=== PATIENT | male | born 1975 | race Caucasian/White ===

== ENCOUNTER → 2016-11-01 | Outpatient (CLI) | payer OTHER ==
--- NOTE | 2016-11-01 10:35 | XR ---
EXAMINATION TYPE: XR lumbar spine 2 or 3V DATE OF EXAM: 11/01/2016 9:44 AM COMPARISON: NONE HISTORY: 41 year-old male chronic back pain, no injury TECHNIQUE: 3 views FINDINGS: 5 lumbar type vertebral bodies. Mild endplate spondylosis thoracolumbar junction and upper lumbar spi ne. Mild disc interspace narrowing at L5-S1. Alignment is maintained and vertebral body heights are p reserved. IMPRESSION: 1. Some endplate spondylosis at the thoracolumbar junction and mild degenerative disc disease at L5-S 1. 2. No vertebral compression collapse or malalignment.
== END | disposition home or self-care (01) ==
LOC: RADXRMAIN 09:23
PROVIDERS: ATTEND Internal Medicine
DX: M51.37 Other intervertebral disc degeneration, lumbosacral region (principal); M47.815 Spondylosis without myelopathy or radiculopathy, thoracolumbar region
CPT/HCPCS: 72100

== ENCOUNTER → 2019-06-29 | Outpatient (CLI) | payer OTHER ==
--- NOTE | 2019-06-29 11:36 | XR ---
EXAMINATION TYPE: XR knee complete LT DATE OF EXAM: 06/29/2019 CLINICAL HISTORY: Sharp left knee pain. TECHNIQUE: Three views of the left knee are obtained. COMPARISON: None. FINDINGS: There is no acute fracture/dislocation evident in left knee. Well-defined bony fragmentati on lateral aspect of the patella could reflect unfused growth plates or product of old trauma. Mild t o moderate narrowing medial slightly more prominent than lateral tibiofemoral compartments. Mild spur ring medial tibial femoral compartment. Moderate to severe narrowing patellofemoral compartment with mild spurring. Increased density suprapatellar bursa suspicious for moderate joint effusion. IMPRESSION: As above. Findings somewhat prominent for patient's chronologic age.
--- NOTE | 2019-06-29 11:37 | XR ---
EXAMINATION TYPE: XR thoracic spine 2V DATE OF EXAM: 06/29/2019 CLINICAL HISTORY: Injury with mid back pain. TECHNIQUE: Frontal, lateral, and swimmer's view of thoracic spine are obtained. COMPARISON: None. FINDINGS: Thoracic spine show straightened alignment without evidence of acute fracture or dislocatio n. Slight scoliotic curvature on frontal images. Vertebral body heights and disc space heights are p reserved. Minimal multilevel spurring. Visualized ribs are unremarkable bilaterally. IMPRESSION: As above.
--- NOTE | 2019-06-29 11:40 | XR ---
EXAMINATION TYPE: XR lumbar spine 2 or 3V DATE OF EXAM: 06/29/2019 CLINICAL HISTORY: Low back pain after recent injury. TECHNIQUE: Frontal and lateral images of the lumbar spine are obtained. COMPARISON: Lumbar spine x-ray November 01, 2016 FINDINGS: There are 5 lumbar type vertebral bodies redemonstrated. There is worsening now severe pos terior disc space narrowing L5-S1 level with suggestion of slight grade 1 retrolisthesis L5 on S1. Re mainder of vertebral body and disc space heights are maintained. Facet arthropathy lower lumbar level s is suspected. Poor visualization of right L5 spinous process on current study noted. IMPRESSION: As above, consider further investigation with CT or MRI lumbar spine study.
== END | disposition home or self-care (01) ==
LOC: RADXRMAIN 10:27
PROVIDERS: ATTEND Family Medicine
DX: M99.73 Connective tissue and disc stenosis of intervertebral foramina of lumbar region (principal); M43.16 Spondylolisthesis, lumbar region; M46.96 Unspecified inflammatory spondylopathy, lumbar region; M54.6 Pain in thoracic spine; M41.84 Other forms of scoliosis, thoracic region; M25.562 Pain in left knee
CPT/HCPCS: 72070; 72100

== ENCOUNTER → 2019-07-13 | Outpatient (CLI) | payer OTHER ==
--- NOTE | 2019-07-13 14:23 | MR ---
EXAMINATION TYPE: MR lumbar spine wo con DATE OF EXAM: 07/13/2019 COMPARISON: Plain film 07/09/2019 HISTORY: Low back pain TECHNIQUE: Multiplanar, multisequence images of the lumbar spine were acquired. L1-L2: Mild posterior disc bulge causes slight anterior mass effect on the thecal sac. No significant central stenosis or foraminal encroachment. L2-L3: Normal disc appearance without desiccation. No herniation, protrusion or disc bulging. No ca nal stenosis is present. Foramina are patent bilaterally. L3-L4: Normal disc appearance without desiccation. No herniation, protrusion or disc bulging. No ca nal stenosis is present. Foramina are patent bilaterally. L4-L5: Minimal posterior disc bulge contacts anterior thecal sac. There is facet arthropathy change p resent. No significant central stenosis. Some mild right-sided foraminal encroachment contributed by slight spinal curvature. L5-S1: Loss of disc height and signal is present, there is endplate discogenic marrow signal change, spondylosis. Posterior extension of endplate disc complex is noted, there is anterior mass effect on the thecal sac and possibly proximal S1 nerve roots. Focal small central posterior disc herniation ex tends inferiorly. Some hypertrophic changes present at the facets. Circumferential extension of endpl ate disc complex results in foraminal encroachment greater on the right than on the left. No signific ant central stenosis. Lumbar segments are intact. No paraspinal masses are identified. Conus medullaris has a normal appe arance. IMPRESSION: Degenerative disc disease with small disc herniation L5-S1, correlate for possible S1 radiculopathies and additional findings above.
== END | disposition home or self-care (01) ==
LOC: RADMRIMAIN 09:08
PROVIDERS: ATTEND Physician Assistant
DX: M51.27 Other intervertebral disc displacement, lumbosacral region (principal); M51.37 Other intervertebral disc degeneration, lumbosacral region
CPT/HCPCS: 72148

== ENCOUNTER → 2019-09-21 | Outpatient (CLI) | payer OTHER ==
--- NOTE | 2019-09-21 12:57 | XR ---
EXAMINATION TYPE: XR cervical spine comp DATE OF EXAM: 09/21/2019 TECHNIQUE: Frontal, lateral, oblique, and open mouth view of the cervical spine are obtained. HISTORY: cervical fusion surgery one month ago. COMPARISON: None FINDINGS: There is anterior fusion plate with artificial disc material C3-C5 level. Satisfactory alig nment seen. Mild to moderate disc space narrowing C5-C6 level. Moderate disc space narrowing and ante rior spurring C6-C7 level. Suboptimal evaluation C7-T1 level without dedicated swimmer's view. Prever tebral soft tissue upper limits of normal at C2 level. C1-C2 articulation satisfactory open mouth fro ntal view. Oblique images within normal limits. Overlying soft tissues unremarkable. IMPRESSION: As above.
== END | disposition home or self-care (01) ==
LOC: RADXRMAIN 11:24
PROVIDERS: ATTEND Neurological Surgery
DX: M99.71 Connective tissue and disc stenosis of intervertebral foramina of cervical region (principal); Z98.1 Arthrodesis status
CPT/HCPCS: 72050

== ENCOUNTER → 2019-12-07 | Outpatient (CLI) | payer OTHER ==
--- NOTE | 2019-12-07 13:48 | XR ---
EXAMINATION TYPE: XR cervical spine comp DATE OF EXAM: 12/07/2019 COMPARISON: 5 views HISTORY: 44-year-old male Z98.1, post surgical follow-up, arthrodesis status TECHNIQUE: 5 views FINDINGS: No predental space widening or prevertebral soft tissue swelling. ACDF is demonstrated from C3 throug h C5 levels. Interval decrease in the previously seen prevertebral soft tissue swelling. Mild to mode rate disc space narrowing below the fusion at C5-C6 and C6/C7. In the right, facet and uncovertebral joint arthropathy results in mild to moderate narrowing of the C3-C4 and C5-C6 neuroforamen, mild at C4-C5. On the left, there is moderate bony neuroforaminal narrowing at C2-C3 and C4-C5, mild to moderate at C3-C4. Alignment is maintained. IMPRESSION: Uncomplicated appearance to the C3-C5 ACDF. Resolution of the previous prevertebral soft tissue swell ing. Scattered moderate spondylotic change as above. No malalignment.
== END | disposition home or self-care (01) ==
LOC: RADXRMAIN 09:39
PROVIDERS: ATTEND Neurological Surgery
DX: M47.812 Spondylosis without myelopathy or radiculopathy, cervical region (principal); Z98.1 Arthrodesis status
CPT/HCPCS: 72050

== ENCOUNTER → 2020-03-15 | Outpatient (CLI) | payer OTHER ==
--- NOTE | 2020-03-15 10:31 | XR ---
Cervical spine HISTORY: Z 98.1, cervical fusion 5 views of the cervical spine correlated to prior exam 12/07/2019 Temperature cervical fusion and discectomy at C3-C5 again noted. Alignment is stable. Spondylosis wit h loss of disc height present at C5-6, C6-7, C7-T1. Cervical vertebral bodies show stable height and mineralization. Multilevel facet arthropathy changes are present. Oblique views suggest some foramina l encroachment at C3-4, C4-5 bilaterally with right-sided C3-4 foraminal stenosis greatest in nature which may progressed in the interval. IMPRESSION: There may be some progression in foraminal encroachment at C3-4 on the right although the re may be differences in technique causing the change in appearance. Postop changes. Degenerative dis c disease.
== END | disposition home or self-care (01) ==
LOC: RADXRMAIN 09:04
PROVIDERS: ATTEND Neurological Surgery
DX: Z48.89 Encounter for other specified surgical aftercare (principal); M50.30 Other cervical disc degeneration, unspecified cervical region; Z98.1 Arthrodesis status
CPT/HCPCS: 72050